=== PATIENT | female | born 1975 | race Caucasian/White ===

== ENCOUNTER 2016-04-02 14:01 | Emergency (ER) | payer OTHER | END 2016-04-02 15:19 | disposition home or self-care (01) | DX: R55 Syncope and collapse (principal); R03.0 Elevated blood-pressure reading, without diagnosis of hypertension; M79.7 Fibromyalgia; E03.9 Hypothyroidism, unspecified ==

== ENCOUNTER 2016-09-04 12:13 | Day surgery (SDC) | payer OTHER ==
[2016-09-04] MEDS ORDERED: LACTATED RINGERS 1,000 ML IV ONE ×2 (13:22→16:40)
[2016-09-04 14:32] LABS: HCG UR QUAL NEGATIVE
--- NOTE | 2016-09-04 15:25 | HISTORY & PHYSICAL EXAMINATION ---
HPI - History of Present Illness HPI Comment/Other: Cynthia is here in followup for persistent rectal bleeding. She underwent hemorrhoid banding in January 2016. She did have some resolution of the bleeding at that time however it is occurring more frequently again. She has bleeding with most bowel movements and occasionally has bleeding spontaneously. As the was bright red. She has minimal rectal pain associated with bowel movements and straining. She states that she has had a colonoscopy about 6 or 7 years ago but is unsure where she had it and is not sure of polyps or other abnormalities were seen. Current Meds: ANUSOL-HC 2.5 % CREA (HYDROCORTISONE) Apply to affected area every 6 hour as needed RECTIV 0.4 % RECTAL OINT (NITROGLYCERIN) apply one inch every 12 hours LIDOCAINE HCL 3 % EXT CREA (LIDOCAINE HCL) Apply one inch to effected area three times per day SUPREP BOWEL PREP SOLN (NA SULFATE-K SULFATE-MG SULF) Take as directed OXYCODONE HCL 5 MG TABS (OXYCODONE HCL) 2 qd CYCLOBENZAPRINE HCL 10 MG TABS (CYCLOBENZAPRINE HCL) Take one tablet by mouth up to three times daily as needed for muscle spasms DICLOFENAC SODIUM 75 MG TBEC (DICLOFENAC SODIUM) Take one tablet by mouth twice daily HYDROXYZINE HCL 25 MG TABS (HYDROXYZINE HCL) qd TOPAMAX 100 MG ORAL TABS (TOPIRAMATE) qd FLUOXETINE HCL 10 MG TABS (FLUOXETINE HCL) Take one tablet by mouth daily LEVOTHYROXINE SODIUM 50 MCG TABS (LEVOTHYROXINE SODIUM) Take one tablet by mouth daily DICLOFENAC SODIUM 50 MG TBEC (DICLOFENAC SODIUM) 1 po daily to bid PHENTERMINE HCL 37.5 MG TABS (PHENTERMINE HCL) po qAM D.O.S. 250 MG CAPS (DOCUSATE SODIUM) 1 po every day, unitll no longer constipated, then titrate down as needed ZANAFLEX 4 MG CAPS (TIZANIDINE HCL) 1-2 q 6-8hr prn muscle spasms no more than 30mg/24h prefer not tot take more than4-6/24hr ALPRAZOLAM 0.5 MG TABS (ALPRAZOLAM) 1/2 tab po prn anxiety q8hr prn PERCOCET 7.5-325 MG TABS (OXYCODONE-ACETAMINOPHEN) 1 po q 6-8 hrs, may have #90 /month * PLEASE REFER PATIENT FOR A LAP BAND EVALUATION PROZAC 20 MG CAPS (FLUOXETINE HCL) one capsule po daily Allergies: * PAPER TAPE (Critical) Physical Exam General: normal appearance and obese. Lungs: clear bilaterally to A & P Heart: regular rate and rhythm, S1, S2 without murmurs, rubs, gallops, or clicks Abdomen: bowel sounds positive; abdomen soft and non-tender without masses, organomegaly, or hernias noted Pulses: pulses normal in all 4 extremities Extremities: no clubbing, cyanosis, edema, or deformity noted with normal full range of motion of all joints Cervical Nodes: no significant adenopathy Psych: alert and cooperative; normal mood and affect; normal attention span and concentration Medications were reviewed with the patient during this visit. Allergies were reviewed with the patient during this visit. Allergies: * PAPER TAPE (Critical) Impression & Recommendations: Problem # 1: Persistent rectal bleeding Will proceed with colonoscopy and possible hemorrhoidectomy PMH/PSH - Past Medical History Cardiovascular: positive: None Respiratory: positive: None Neuro: positive: Headache/migraine Endocrine/Autoimmune: positive: HyPOthyroidism GI: positive: GERD, Colon polyps, Chronic diarrhea, Chronic constipation, Cholelithiasis : positive: None HEENT: positive: None Psych: positive: Depression, Anxiety, Panic attacks, Claustrophobia Musculoskeletal: positive: Fibromyalgia, Chronic back pain Derm: positive: None MRSA Hx?: No - Past Surgical History General: 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: 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: positive: Dilation and currettage Social & Family Hx - Social History Does the pt smoke?: No Smoking Status: Never smoker Does the pt drink ETOH?: Yes ETOH Use: Wine, Liquor Does the pt have substance abuse?: No Substance Use and Type: Marijuana Meds/Allgy - Home Medications Home Medications: Ambulatory Orders Medication Instructions Recorded Confirmed ALPRAZolam [Xanax] 0.5 mg ORAL TID PRN 01/23/14 09/04/16 Cyclobenzaprine [Flexeril] 10 mg ORAL TID PRN 01/23/14 09/04/16 Diclofenac Sodium 50 mg ORAL BID 01/23/14 09/04/16 Ondansetron HCl [Zofran] 4 mg ORAL TID PRN 01/23/14 08/29/16 Sumatriptan [Imitrex] 25 mg ORAL TITR PRN 01/23/14 08/29/16 oxyCODONE [Roxicodone] 10 mg ORAL QID PRN 01/23/14 09/04/16 Levothyroxine [Synthroid] 50 mcg PO DAILY 12/29/15 09/04/16 Cyanocobalamin (Vitamin B-12) 5,000 mcg PO DAILY 02/06/16 09/04/16 [Vitamin B12] Fluoxetine HCl [Prozac] 20 mg PO DAILY 02/06/16 09/04/16 - Allergies Allergies/Adverse Reactions: Allergies Allergy/AdvReac Type Severity Reaction Status Date / Time paper tape AdvReac Rash Uncoded 02/06/16 07:03 Exam - Vital Signs Vital Signs: Vital Signs x48h Temp Pulse Resp BP Pulse Ox 09/04/16 12:47 37 C 87 18 119/87 H 98 Results - Lab Results Other Lab Results: Lab Results x24hrs 09/04/16 Range/Units 14:25 Ur Specific [place] >=1.030 H (1.002-1.030) Urine HCG, Qual NEGATIVE
[2016-09-04] MEDS ORDERED: MIDAZOLAM 2 MG/2 ML VIAL IVP ONE (15:40)
[2016-09-04] MEDS ORDERED: LIDOCAINE-PF 2% 10 ML AMP SUBQ ONE (15:40)
[2016-09-04] MEDS ORDERED: PROPOFOL 1000 MG/100 ML IV ONE (15:40)
[2016-09-04] MEDS ORDERED: ceFAZolin 1 GM VIAL IV ONE (15:40)
[2016-09-04] MEDS ORDERED: fentaNYL 100 MCG/2 ML VIAL IVP ONE (15:40)
[2016-09-04] MEDS ORDERED: LIDOCAINE 1%-EPI 1:100000 20 ML MDV SUBQ ONE (16:01)
[2016-09-04] MEDS ORDERED: BUPIVACAINE 0.25% PF 30 ML VIAL SUBQ ONE (16:01)
[2016-09-04] MEDS ORDERED: HYDROmorphone 1 MG/ML SYRINGE ONE (16:46)
[2016-09-04] MEDS ORDERED: ONDANSETRON 4 MG/2 ML VIAL ONE (16:52)
[2016-09-04] MEDS ORDERED: oxyCOD/ACETAMIN 5 MG/325 MG TABLET PO ONE ×2 (17:23→17:24)
[2016-09-04 18:32] VITALS: BP 128/76
--- NOTE | 2016-09-06 03:04 | OPERATIVE REPORT ---
DATE OF SURGERY: 09/04/2016 00:00:00 SURGEON: Neida Arciniega MD. PREOPERATIVE DIAGNOSIS: Internal hemorrhoids. POSTOPERATIVE DIAGNOSIS: Internal hemorrhoids. INDICATION FOR PROCEDURE: This is a 41-year-old female who has recurrent complaints of rectal bleeding. Prior to performing the hemorrhoidectomy, colonoscopy was performed. FINDINGS: After receiving informed consent from the patient, she was brought into the operating room, positioned on the operating table in the lithotomy position, taking note of pressure points. She was sedated by anesthesia and 2 grams of Ancef were administered. She was then prepped and draped in the usual sterile fashion and a timeout was taken according to protocol. Circumferential internal hemorrhoids were noted. Additionally, a sinus tract was noted, located in the 12 o'clock position. The sinus tract was removed using electrocautery. The tract was then cauterized. Care was then taken to ensure hemostasis. Attention was then turned to the left lateral hemorrhoidal complex. This was grasped and resected, initially using a 15 blade and then completely resecting the hemorrhoidal complex with electrocautery. The base of the hemorrhoid was cauterized to achieve hemostasis. The incision line was then closed with a running 3-0 Chromic. The right posterior hemorrhoidal complex was then addressed in a similar manner by clamping it and then incising the skin surrounding the hemorrhoid and then completely excising the hemorrhoid with electrocautery. The base was cauterized to achieve hemostasis and the wound was then closed with 3-0 Chromic in a running fashion. The anal canal was inspected for any bleeding and hemostasis was noted to be achieved. It was irrigated profusely. An additional hemorrhoidal complex in the 6 o'clock position was not addressed due to its small size and the extensive dissection that had already been undertaken. Thrombin and Gelfoam was then inserted into the anal canal. Dry sponges and underwear were then applied. The patient was taken to recovery in stable condition. ESTIMATED BLOOD LOSS: 10 mL. COMPLICATIONS: None. SPECIMENS: None. JOB #: [id number] EXT JOB #:[id number]
== END 2016-09-04 12:14 | disposition home or self-care (01) ==
LOC: SDS 12:13
PROVIDERS: ATTEND Surgery
PROC: 0DJD8ZZ Inspection of Lower Intestinal Tract, Via Natural or Artificial Opening Endoscopic (ICD-10-PCS; principal; 2016-09-04 13:30)
PROC: 06BY0ZC Excision of Hemorrhoidal Plexus, Open Approach (ICD-10-PCS; 2016-09-04 13:30)
DX: K64.8 Other hemorrhoids (principal); Q27.33 Arteriovenous malformation of digestive system vessel; K62.5 Hemorrhage of anus and rectum; E03.9 Hypothyroidism, unspecified; K21.9 Gastro-esophageal reflux disease without esophagitis; F32.9 Major depressive disorder, single episode, unspecified; F41.0 Panic disorder [episodic paroxysmal anxiety]; G89.29 Other chronic pain; M54.9 Dorsalgia, unspecified; E66.9 Obesity, unspecified; Z68.41 Body mass index [BMI] 40.0-44.9, adult; Z87.891 Personal history of nicotine dependence; Z90.49 Acquired absence of other specified parts of digestive tract
CPT/HCPCS: 45378; 46260; 81025; A9270; J1170; J7120

== ENCOUNTER 2016-12-18 08:00 | Outpatient (CLI) | payer OTHER ==
[2016-12-18 14:32] LABS: CREATININE 0.9 mg/dL (0.4-1.0)
== END 2016-12-18 08:01 | disposition home or self-care (01) ==
LOC: LAB.F 08:00
PROVIDERS: ATTEND Neurological Surgery
DX: G96.0 Cerebrospinal fluid leak (principal)
CPT/HCPCS: 36415; 80048

== ENCOUNTER 2017-01-03 11:17 | Outpatient (CLI) | payer OTHER ==
[2017-01-03 12:11] LABS: CALCIUM 9.3 mg/dL (8.5-10.3); CREATININE 0.9 mg/dL (0.4-1.0); POTASSIUM 4.4 mmol/L (3.5-5.0)
== END 2017-01-03 11:18 | disposition home or self-care (01) ==
LOC: LAB 11:17
PROVIDERS: ATTEND Neurological Surgery
DX: G96.0 Cerebrospinal fluid leak (principal)
CPT/HCPCS: 36415; 80048

== ENCOUNTER 2017-02-17 09:45 | Emergency (ER) | payer OTHER ==
[2017-02-17] MEDS ORDERED: DEXAMETHASONE 10 MG/ML VIAL PO STA (10:47)
[2017-02-17] MEDS ORDERED: cefTRIAXone 1 GM VIAL IM STA (10:47)
--- NOTE | 2017-02-17 10:49 | ED Physician Documentation ---
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 She has developed pain in her left ear and this pain peaked last night this morning she has had drainage from the ear and her pain is slightly better. She called her physician last night and a prescription for Augmentin and is waiting for her. Review of Systems Constitutional: denies: Fever Eyes: denies: Decreased vision Ears: reports: Ear pain, Drainage/discharge Nose: reports: Rhinorrhea / runny nose, Congestion Throat: reports: Sore throat Cardiac: denies: Chest pain / pressure, Palpitations Respiratory: reports: Cough. 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 - Present Medications Home Medications: Ambulatory Orders Medication Instructions Recorded Confirmed ALPRAZolam [Xanax] 0.5 mg ORAL TID PRN 01/23/14 02/17/17 Cyclobenzaprine [Flexeril] 10 mg ORAL TID PRN 01/23/14 02/17/17 Diclofenac Sodium 50 mg ORAL BID 01/23/14 02/17/17 Ondansetron HCl [Zofran] 4 mg ORAL TID PRN 01/23/14 02/17/17 SUMAtriptan [Imitrex] 25 mg ORAL TITR PRN 01/23/14 02/17/17 oxyCODONE [Roxicodone] 10 mg ORAL QID PRN 01/23/14 02/17/17 Levothyroxine [Synthroid] 50 mcg PO DAILY 12/29/15 02/17/17 Cyanocobalamin (Vitamin B-12) 5,000 mcg PO DAILY 02/06/16 02/17/17 [Vitamin B12] Fluoxetine HCl [Prozac] 20 mg PO DAILY 02/06/16 02/17/17 - Allergies Allergies/Adverse Reactions: Allergies Allergy/AdvReac Type Severity Reaction Status Date / Time paper tape AdvReac Rash Uncoded 02/06/16 07:03 - Social History Does the pt smoke?: No Smoking Status: Never smoker Does the pt drink ETOH?: Yes Does the pt have substance abuse?: No - Immunizations Immunizations are current?: Yes PD ED PE NORMAL - Vitals Vital signs reviewed: Yes (Hypertension) - General General: No acute distress, Well developed/nourished - HEENT HEENT: Atraumatic, PERRL, EOMI, Other (The right TM is clear the left is ruptured with drainage present and landmarks are not identifiable.) - Neck Neck: Supple, no meningeal sign, No bony TTP - Cardiac Cardiac: RRR, No murmur - Respiratory Respiratory: No respiratory distress, Clear bilaterally - Abdomen Abdomen: Soft, Non tender - Back Back: No CVA TTP, No spinal TTP - Derm Derm: Normal color, Warm and dry, No rash - Extremities Extremities: No deformity, No edema - Neuro Neuro: No motor deficit, No sensory deficit Eye Opening: Spontaneous Motor: Obeys Commands Verbal: Oriented GCS Score: 15 - Psych Psych: Normal mood, Normal affect Results - Vitals Vitals: Vital Signs - 24 hr 02/17/17 09:53 Temperature 36.3 C L Heart Rate 84 Respiratory 18 Rate Blood Pressure 116/82 H O2 Saturation 98 Oxygen O2 Source Room air PD MEDICAL DECISION MAKING - ED course Complexity details: reviewed old records, considered differential, d/w patient, d/w family ED course: 41-year-old female withLeft ear pain with rupture of the left TM. 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 The otorrhea from the left ear is unlikely to be a direct CSF leak as she has not had fracture through the cribriform plate. Departure - Departure Disposition: 01 Home, Self Care Clinical Impression: Otitis media Qualifiers: Otitis media type: suppurative Chronicity: acute Laterality: left Recurrence: not specified as recurrent Spontaneous tympanic membrane rupture: with spontaneous rupture Qualified Code(s): H66.012 - Acute suppurative otitis media with spontaneous rupture of ear drum, left ear Condition: Stable Instructions: ED Otitis Media Acute Adult, ED Rupture Eardrum Infec Follow-Up: Elizabeth Sorto PA-C [Primary Care Provider] - Prescriptions: HYDROcod/ACETAM 5/325 [[place] 5/325] 1 - 2 ea PO Q6H PRN #15 tablet PRN Reason: Pain Comments: talk to your provider about pain control as you will likely need more pain medication than is currently allotted. Take the augmentin as prescribed by CHRIS Sorto
[2017-02-17] MEDS ORDERED: oxyCODONE 5 MG TABLET PO STA (10:55)
[2017-02-17] MEDS ORDERED: DEXAMETHASONE 10 MG/ML VIAL ONE (10:58)
[2017-02-17] MEDS ORDERED: cefTRIAXone 1 GM VIAL ONE (10:59)
[2017-02-17] MEDS ORDERED: LIDOCAINE 1% 2 ML VIAL ONE (10:59)
[2017-02-17] MEDS ORDERED: CHERRY SYRUP 10 ML UDC PO ONE (11:01)
[2017-02-17 11:06] VITALS: BP 111/83
[2017-02-17] MEDS ORDERED: oxyCODONE 5 MG TABLET ONE (11:10)
== END 2017-02-17 11:17 | disposition home or self-care (01) ==
LOC: ED 09:45
DX: H66.012 Acute suppurative otitis media with spontaneous rupture of ear drum, left ear (principal); E03.9 Hypothyroidism, unspecified
CPT/HCPCS: 96372; 99283; A9270

== ENCOUNTER 2017-03-08 09:28 | Outpatient (CLI) | payer OTHER ==
--- NOTE | 2017-03-08 14:50 | MRI Report ---
EXAM: MRI LUMBAR SPINE WITHOUT CONTRAST EXAM DATE: 03/08/2017 10:01 AM. CLINICAL HISTORY: Chronic left foot numbness. Pain since surgery. COMPARISON: 07/27/2009 radiograph, CT scan 09/15/2015. TECHNIQUE: Multiplanar, multisequence T1-weighted and fluid-sensitive sequences of the lumbar spine f rom T12 to S1 without contrast. Other: None. FINDINGS: Spinal Cord: The conus terminates at L1-L2. The conus medullaris and cauda equina are unremarkable. Alignment: No scoliosis or spondylolisthesis. Bone Marrow: Note that on the prior radiograph and CT, the L1 vertebral body does have attached trans verse processes, although there are slight indentations. No fractures. Type I endplate change is at L 4-L5. Disk Levels/Facets: T11-t12: A mild posterior disk protrusion and posterior epidural fat causes mild spinal canal narrowi ng. There is indentation on the anterior cord. T12-l1: Unremarkable. L1-L2: Unremarkable. L2-L3: Unremarkable. L3-L4: A mild right paracentral disk protrusion results in mild spinal canal, mild right subarticular zone narrowing. L4-L5: Moderate disk height loss is accompanied by desiccation. A posterior disk protrusion/extrusion extends slightly below and above the disk level. It has a length of 1.4 cm and is centrally located. This disk pathology causes moderate spinal canal and mild bilateral foraminal narrowing. L5-S1: Mild left facet osteoarthritis has no neurologic consequence. Musculature: Normal. No edema or fatty atrophy. Other: The partially visualized retroperitoneum is unremarkable. IMPRESSION: 1. Mild spinal canal narrowing at T11-T12 due to disk protrusion and epidural fat. 2. Mild spinal canal and right subarticular zone narrowing at L3-L4 due to disk protrusion. 3. Moderate spinal canal and mild bilateral foraminal narrowing at L4-L5 due to disk protrusion/extru maria. Comment: The following findings are so common in adults without low back pain that while we report th eir presence, they must be interpreted with caution and in the context of the clinical situation. (Re pamela Pascal et al, Spine 2001) Prevalence of findings in patients without low back pain: Disk degeneration (any evidence): 92% Disk desiccation/T2 signal loss: 83% Disk height loss: 56% Disk bulge: 64% Disk protrusion: 32% Annular tear/high intensity zone: 38% [facility] Referring Provider Line: [phone] SITE ID: [id number]
== END 2017-03-08 09:29 | disposition home or self-care (01) ==
LOC: DI 09:28
PROVIDERS: ATTEND Neurological Surgery
DX: M51.24 Other intervertebral disc displacement, thoracic region (principal); M51.26 Other intervertebral disc displacement, lumbar region; M51.36 Other intervertebral disc degeneration, lumbar region
CPT/HCPCS: 72148

== ENCOUNTER 2017-10-02 14:23 | Outpatient (CLI) | payer OTHER ==
[2017-10-02 14:32] LABS: INR 1.1 (0.8-1.2); PT - PROTHROMBIN TIME 12.4 secs (9.9-12.6)
--- NOTE | 2017-10-03 14:59 | Ultrasound Report ---
Procedure Date: 10/02/2017 Accession Number: [id number] / [id number] Procedure: US - Duplex Ext Veins Left CPT Code: FULL RESULT: EXAM: LEFT LOWER EXTREMITY VENOUS ULTRASOUND EXAM DATE: 10/02/2017 04:02 PM. CLINICAL HISTORY: Follow-up DVT. On Pradaxa. COMPARISON: None. TECHNIQUE: Real-time sonographic vascular imaging was performed by the small stock facer through the lower extremity utilizing both color-flow and Doppler spectral analysis. 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 FINDINGS: Common Femoral Vein (CFV): Normal. CFV-GSV Junction: Normal. Profunda Femoral Vein (PFV): Normal. Femoral Vein (FV) Prox: Normal. Femoral Vein (FV) Mid: Normal. Femoral Vein (FV) Dist: Normal. Popliteal Vein: Normal. Posterior Tibial Veins: Normal. Peroneal Veins: Normal. IMPRESSION: No evidence for deep venous thrombosis. [facility]
== END 2017-10-02 14:24 | disposition home or self-care (01) ==
LOC: DI 14:23
PROVIDERS: ATTEND Physician Assistant
DX: I82.409 Acute embolism and thrombosis of unspecified deep veins of unspecified lower extremity (principal)
CPT/HCPCS: 36415; 85610

== ENCOUNTER 2018-04-20 16:27 | Emergency (ER) | payer OTHER, MEDICAID ==
[2018-04-20] MEDS ORDERED: HYDROmorphone 1 MG/ML CARPUJECT IVP STA (17:20)
[2018-04-20] MEDS ORDERED: METOCLOPRAMIDE 10 MG/2 ML VIAL IVP STA (17:20)
--- NOTE | 2018-04-20 17:23 | ED Physician Documentation ---
PD HPI HEADACHE - Stated complaint Stated Complaint: HEAD PRESSURE - Chief complaint Chief Complaint: Neuro - History obtained from History obtained from: Patient - History of Present Illness Timing - onset: Other (This is a 42-year-old woman who has chronic headaches ever since pituitary tumor was removed a couple of years ago. She actually had chronic headaches before that and it was hopeful that removing with pituitary tumor would be helpful, but ever since then has had more severe episodic headaches. The running theory is that it may be due to low intracranial pressure and she has an MRI scheduled on Saturday. Her headache is been much worse today, and intermittent posterior headache that is throbbing and she feels like her ears are going to explode. There is no URI symptoms or fever with it. No photophobia.) Review of Systems Constitutional: denies: Fever, Chills Ears: denies: Ear pain Nose: denies: Rhinorrhea / runny nose, Congestion Throat: denies: Sore throat Cardiac: denies: Chest pain / pressure, Palpitations Respiratory: denies: Dyspnea PD PAST MEDICAL HISTORY - Past Medical History Cardiovascular: None Respiratory: None Endocrine/Autoimmune: HyPOthyroidism GI: GERD, Colon polyps, Chronic diarrhea, Chronic constipation, Cholelithiasis : None HEENT: None Psych: Depression, Anxiety, Panic attacks, Claustrophobia Musculoskeletal: Fibromyalgia, Chronic back pain Derm: None - Past Surgical History Past Surgical History: Yes 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 - Present Medications Home Medications: Ambulatory Orders Medication Instructions Recorded Confirmed ALPRAZolam [Xanax] 0.5 mg ORAL TID PRN 01/23/14 02/17/17 Cyclobenzaprine [Flexeril] 10 mg ORAL TID PRN 01/23/14 02/17/17 Diclofenac Sodium 50 mg ORAL BID 01/23/14 02/17/17 Ondansetron HCl [Zofran] 4 mg ORAL TID PRN 01/23/14 02/17/17 SUMAtriptan [Imitrex] 25 mg ORAL TITR PRN 01/23/14 02/17/17 oxyCODONE [Roxicodone] 10 mg ORAL QID PRN 01/23/14 02/17/17 Levothyroxine [Synthroid] 50 mcg PO DAILY 12/29/15 02/17/17 Cyanocobalamin (Vitamin B-12) 5,000 mcg PO DAILY 02/06/16 02/17/17 [Vitamin B12] Fluoxetine HCl [Prozac] 20 mg PO DAILY 02/06/16 02/17/17 oxyCODONE [Roxicodone] 10 mg PO Q6H PRN #10 tablet 04/20/18 - Allergies Allergies/Adverse Reactions: Allergies Allergy/AdvReac Type Severity Reaction Status Date / Time paper tape AdvReac Rash Uncoded 02/06/16 07:03 - Social History Does the pt smoke?: No Smoking Status: Never smoker Does the pt drink ETOH?: Yes Does the pt have substance abuse?: No - Immunizations Immunizations are current?: Yes PD ED PE NORMAL - Vitals Vital signs reviewed: Yes - General General: Alert and oriented X 3, Other (Uncomfortable) - HEENT HEENT: PERRL, EOMI - Neck Neck: Supple, no meningeal sign, No bony TTP - Cardiac Cardiac: RRR, No murmur - Respiratory Respiratory: No respiratory distress, Clear bilaterally - Abdomen Abdomen: Non tender - Derm Derm: No rash - Neuro Neuro: Alert and oriented 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, 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 Eye Opening: Spontaneous Motor: Obeys Commands Verbal: Oriented GCS Score: 15 - Psych Psych: Normal mood, Normal affect Results - Vitals Vitals: Vital Signs - 24 hr 04/20/18 16:43 Temperature 36.6 C Heart Rate 85 Respiratory 18 Rate Blood Pressure 130/109 H O2 Saturation 100 Oxygen O2 Source Room air - Rads (name of study) CT Head Radiology: EMP read contemporaneously, See rad report (NAD) PD MEDICAL DECISION MAKING - ED course ED course: 42-year-old woman with chronic headaches, CT imaging was done because of anticoagulated status without pertinent findings with much better after pain medication. The pattern is just similar to migraines. Departure - Departure Disposition: 01 Home, Self Care Clinical Impression: Headache Qualifiers: Headache type: tension-type Headache chronicity pattern: acute headache Intractability: not intractable Qualified Code(s): G44.209 - Tension-type headache, unspecified, not intractable Condition: Good Record reviewed to determine appropriate education?: Yes Instructions: ED Cephalgia Unspecified Prescriptions: oxyCODONE [Roxicodone] 10 mg PO Q6H PRN #10 tablet PRN Reason: Pain Comments: Call your doctor to arrange a follow-up appointment, make the next available appointment. In the interim, return anytime if worse or if new symptoms develop. Your blood pressure was elevated today on check into the emergency department. This does not mean that you have hypertension, it is a common phenomenon to come to the emergency department and have elevated blood pressure. I recommend that you see your primary care physician within the week to have it rechecked when you are feeling better.
--- NOTE | 2018-04-20 18:26 | CT Report ---
Reason: haeadache anticoagulated Procedure Date: 04/20/2018 Accession Number: [id number] / [id number] Procedure: CT - Head W/O CPT Code: FULL RESULT: EXAM: CT HEAD EXAM DATE: 04/20/2018 05:48 PM. CLINICAL HISTORY: Headache. COMPARISON: None. TECHNIQUE: Multiaxial CT images were obtained from the foramen magnum to the vertex. Reformats: Sagittal and coronal. IV contrast: None. In accordance with CT protocol optimization, one or more of the following dose reduction techniques were utilized for this exam: automated exposure control, adjustment of mA and/or KV based on patient size, or use of iterative reconstructive technique. FINDINGS: Parenchyma: No intraparenchymal hemorrhage. No evidence of mass, midline shift, or CT findings of infarction. Warren-white differentiation is distinct. Extraaxial Spaces: Normal for age. No subdural or epidural collections identified. Ventricles: Normal in size and position. Sinuses and Orbits: Imaged paranasal sinuses, orbits, and mastoids show no significant abnormality. Bones: No evidence of fracture or calvarial defect. Other: None. IMPRESSION: No acute intracranial CT abnormality. [facility]
[2018-04-20] MEDS ORDERED: oxyCODONE/ACET 5/325 Prepack 4 PO STA (18:36)
[2018-04-20 18:53] VITALS: BP 128/86
== END 2018-04-20 18:54 | disposition home or self-care (01) ==
LOC: ED 16:27
DX: G44.209 Tension-type headache, unspecified, not intractable (principal); R03.0 Elevated blood-pressure reading, without diagnosis of hypertension
CPT/HCPCS: 70450; 96374; 99283; J1170; J2765